=== PATIENT | female | born 1995 | race Caucasian/White ===

== ENCOUNTER 2022-01-04 17:15 | Emergency (ER) | payer MEDICAID, SELFPAY ==
--- NOTE | ~2022-01-04 | XR_ITS ---
EXAMINATION: XR chest 1V portable Exam Date/Time: 01/04/2022 20:04 CDT HISTORY: mid Chest pain x 2-3 days; hx of anxiety Comparison: None available. RESULT: Lines, tubes, and devices: None. Lungs and pleura: Clear. Cardiomediastinal silhouette: Normal. Other: No acute osseous or upper abdominal finding. IMPRESSION: No acute cardiopulmonary process. Reviewed, dictated and finalized at location K.
--- NOTE | 2022-01-04 17:18 | ECG_ITS ---
Measurements Intervals [place] Rate: 92 P: 58 LA: 114 QRS: 45 QRSD: 82 T: 30 QT: 358 QTc: 444 Interpretive Statements SINUS RHYTHM WITH SHORT LA INTERVAL BORDERLINE ECG NO PREVIOUS ECG AVAILABLE FOR COMPARISON Electronically Signed On 01-04-2022 20:11:23 CDT by Ravinder Lewis D.O.
[2022-01-04 17:31] VITALS: BP 138/89; PULSE 76; RESP 17; TEMP 36.8; O2SAT 100
--- NOTE | 2022-01-04 20:14 | ED.GENADULT ---
HPI - General Adult General Chief complaint: Anxiety Stated complaint: CHEST PAIN X 5 DAYS Time Seen by Provider: 01/04/22 19:40 History of Present Illness HPI narrative: this is a 26-year-old female presenting ED with chest pain x5 days. Patient says that it started soon after she wakes up, is described as a pressure or discomfort in her chest that sometimes radiates to her shoulders arms and legs. the pain comes and goes. Patient is has been having this pain intermittently for the last 5 days. Usually resolves with a hot bath but did not today. There are no exacerbating factors. She does associated with palpitations. She has had panic attacks in the past but says this is worse. The episodes are not associated vomiting, diaphoresis, exertional component, fever chills or productive cough. Patient is not having lower extremity edema, she has no risk factors for pulmonary embolism. Course Vital Signs Vital signs: Vital Signs Temperature 98.3 F 01/04/22 17:31 Pulse Rate 76 01/04/22 17:31 Respiratory Rate 17 01/04/22 17:31 Blood Pressure 138/89 01/04/22 17:31 Pulse Oximetry 100 01/04/22 17:31 Oxygen Delivery Room Air 01/04/22 17:31 Temperature 98.3 F 01/04/22 17:31 Pulse Rate 76 01/04/22 17:31 Respiratory Rate 17 01/04/22 17:31 Blood Pressure 138/89 01/04/22 17:31 Pulse Oximetry 100 01/04/22 17:31 Oxygen Delivery Room Air 01/04/22 17:31 Medical Decision Making [facility] Narrative Medical decision making narrative: A 26-year-old female presenting ED with chief complaint of chest pain and anxiety. Patient has been having pain for 5 weeks. He is PERC negative. Basic lab work including troponin and TSH have been ordered. Chest x-ray and EKG been obtained. Patient is not currently having symptoms. EKG interpretation: Rhythm [sinus], Rate 92, [place] -[normal], CT - short, QRS [narrow], QTC [normal], T waves -[negative for concerning inversions], ST Segments - [Negative for concerning elevations] Final interpretations: Normal Sinus Rhythm with shortened CT interval chest x-ray showed no acute cardiopulmonary process. Lab work was within normal limits with a new 1- troponin. Patient has been having symptoms for over 5 days and a delta troponin is not necessary. This time the patient's workup has been negative except for a shortened CT interval on her EKG. She has no other findings of Dlmyp-[id number]-Obnug. She has had unexplained episodes of tachycardia in the past but has not followed with a dieing out machine operator. She has not had any episodes of syncope or there is no sudden cardiac in her family.I believe that she is safe for outpatient follow-up with cardiology. Patient will be discharged. Vital Signs Vital Signs: Vital Signs Temperature 98.3 F 01/04/22 17:31 Pulse Rate 76 01/04/22 17:31 Respiratory Rate 17 01/04/22 17:31 Blood Pressure 138/89 01/04/22 17:31 Pulse Oximetry 100 01/04/22 17:31 Oxygen Delivery Room Air 01/04/22 17:31 Temperature 98.3 F 01/04/22 17:31 Pulse Rate 76 01/04/22 17:31 Respiratory Rate 17 01/04/22 17:31 Blood Pressure 138/89 01/04/22 17:31 Pulse Oximetry 100 01/04/22 17:31 Oxygen Delivery Room Air 01/04/22 17:31 Discharge Plan Discharge Clinical Impression: Acute anxiety, Shortened CT interval Patient Disposition: Home, Self-Care Condition: Stable Instructions: Antibiotic Form, Chest Pain (DC) Additional Instructions: please follow-up with dieing out machine operator for further evaluation of your shortened CT interval on EKG. Please follow-up with your primary care physician for further evaluation of your anxiety. Please return emergency department if you develop worsening chest pain or difficulty breathing or would like re-evaluation. Follow-up/Referrals: Archie Jaimes MD [Physician] - Julee Mckay MD [Physician] - PHYSICIAN,AUTOMOBILE LEASING SUPERVISOR [Primary Care Provider] -
[2022-01-04 20:25] VITALS: PULSE 80
[2022-01-04 20:34] VITALS: PULSE 82; RESP 19
[2022-01-04 20:39] LABS: Basophils Absolute Auto 0.1 K/mm3 (0.0-0.1); Basophils Percent Auto 0.7 % (0.2-1.2); Eosinophils Absolute Auto 0.1 K/mm3 (0-0.3); Eosinophils Percent Auto 1.2 % (0-4.4); Hematocrit 38.8 % (37.0-47.0); Hemoglobin 12.3 g/dL (12.0-15.0); Immature Granulocyte Absolute 0.02 K/mm3 (0.00-0.031); Immature Granulocyte Percent A 0.3 % (0-0.5); Lymphocytes Absolute Auto 2.13 K/mm3 (0.9-3.2); Lymphocytes Percent Auto 29.4 % (18.3-44.2); Mean Corpuscular HGB Conc 31.7 g/dl (32-36); Mean Corpuscular Hemoglobin 28.3 pg (26-34); Mean Corpuscular Volume 89.2 fl (80-100); Mean Platelet Volume 9.5 fl (7.4-10.4); Monocytes Absolute Auto 0.4 K/mm3 (0.1-0.6); Monocytes Percent Auto 6.1 % (2.6-8.5); Neutrophils Absolute Auto 4.5 K/mm3 (1.3-6.7); Neutrophils Percent Auto 62.3 % (45.5-73.1); Platelet Count Result 294 k/mm3 (150-375); Red Blood Count 4.35 M/mm3 (4.2-5.4); Red Cell Distribution Width 13.3 % (11.5-14.5); White Blood Count 7.3 K/mm3 (4.5-10.0)
[2022-01-04 20:45] VITALS: PULSE 74; RESP 16
[2022-01-04 20:48] LABS: Anion Gap 14 mmol/L (8-16); Blood Urea Nitrogen 14 mg/dL (7-17); Calcium 9.2 mg/dL (8.4-10.2); Carbon Dioxide 22 mmol/L (22-30); Chloride 102 mmol/L (98-107); Estimated CRCL calculation 96 ml/min; Estimated Glomerular Filt Rate > 60; Glucose 94 mg/dL (65-110); Potassium 3.8 mmol/L (3.4-5.0); Sodium 138 mmol/L (137-145)
[2022-01-04 21:00] VITALS: PULSE 70; RESP 17
[2022-01-04 21:00] LABS: Troponin I < 0.012 ng/mL (0.000-0.034)
[2022-01-04 21:15] VITALS: PULSE 74; RESP 17
== END 2022-01-04 21:42 | disposition home or self-care (01) ==
PROVIDERS: Emergency Provider Emergency Medicine
DX: F41.9 Anxiety disorder, unspecified (principal); R94.31 Abnormal electrocardiogram [ECG] [EKG]
CPT/HCPCS: 36415; 71045; 80048; 81025; 83735; 84443; 84484; 85025; 93005; 99284

== ENCOUNTER 2023-09-15 23:49 | Emergency (ER) | payer SELFPAY ==
[2023-09-15 23:50] VITALS: BP 129/90; PULSE 82; RESP 14; TEMP 36.6; O2SAT 100
--- NOTE | 2023-09-16 00:02 | ECG_ITS ---
Test Date: 2023-09-16 00:12:35 Measurements Intervals [place] Rate: 75 P: 66 SD: 129 QRS: 32 QRSD: 85 T: 31 QT: 397 QTc: 444 Interpretive Statements SINUS RHYTHM WITH MARKED SINUS ARRHYTHMIA BASELINE ARTIFACT- V2-V3 NORMAL ECG No previous ECG available for comparison Electronically Signed On 09-16-2023 17:34:53 CDT by Ravinder Lewis D.O.
[2023-09-16 00:12] LABS: Basophils Absolute Auto 0.1 K/mm3 (0.0-0.1); Basophils Percent Auto 0.5 % (0.2-1.2); Eosinophils Percent Auto 0.2 % (0-4.4); Hematocrit 43.1 % (37.0-47.0); Hemoglobin 14.3 g/dL (12.0-15.0); Immature Granulocyte Absolute 0.09 K/mm3 (0.00-0.031); Immature Granulocyte Percent A 0.5 % (0-0.5); Lymphocytes Absolute Auto 1.88 K/mm3 (0.9-3.2); Lymphocytes Percent Auto 11.3 % (18.3-44.2); Mean Corpuscular HGB Conc 33.2 g/dl (32-36); Mean Corpuscular Volume 93.3 fl (80-100); Mean Platelet Volume 9.4 fl (7.4-10.4); Monocytes Absolute Auto 0.8 K/mm3 (0.1-0.6); Neutrophils Absolute Auto 13.8 K/mm3 (1.3-6.7); Neutrophils Percent Auto 82.5 % (45.5-73.1); Platelet Count Result 341 k/mm3 (150-375); Red Blood Count 4.62 M/mm3 (4.2-5.4); Red Cell Distribution Width 13.2 % (11.5-14.5); White Blood Count 16.7 K/mm3 (4.5-10.0)
[2023-09-16 00:22] VITALS: RESP 16
[2023-09-16 00:24] VITALS: O2SAT 100
[2023-09-16 00:25] VITALS: BP 118/90; PULSE 95; RESP 14; O2SAT 100
[2023-09-16 00:25] LABS: Acetaminophen < 10 ug/mL (10-30); Ethanol < 10 mg/dL (<10); Salicylate < 1.0 mg/dL (2-20)
--- NOTE | 2023-09-16 00:27 | PC.NURSE ---
Pt stated to pt registration Torsten that blonde hair nurse I'm going to start some shit with her . Pt then proceeded to call this RN radha .
[2023-09-16 00:31] LABS: Alanine Aminotransferase 16 U/L (6-35); Alkaline Phosphatase 54 U/L (38-126); Anion Gap 12 mmol/L (4-12); Aspartate Amino Transferase 25 U/L (14-36); Bilirubin,Total 0.6 mg/dL (0.2-1.3); Blood Urea Nitrogen 11 mg/dL (7-17); Calcium 9.5 mg/dL (8.4-10.2); Carbon Dioxide 26 mmol/L (22-30); Chloride 100 mmol/L (98-107); Estimated CRCL calculation 91 ml/min; Estimated Glomerular Filt Rate > 60; Glucose 115 mg/dL (65-110); Potassium 3.9 mmol/L (3.4-5.0); Sodium 138 mmol/L (137-145)
--- NOTE | 2023-09-16 01:08 | ED.OVERDOSE ---
HPI - Overdose General Chief Complaint: Overdose <Adrienne Benitez PA-C - Last Filed: 09/16/23 03:25> Stated Complaint: overdose <Adrienne Benitez PA-C - Last Filed: 09/16/23 03:25> Time Seen by Provider: 09/15/23 23:57 <DANNY Dominique Last Filed: 09/16/23 03:25> Source: patient and family <DANNY Dominique Last Filed: 09/16/23 03:25> Mode of arrival: EMS <DANNY Dominique Last Filed: 09/16/23 03:25> Limitations: no limitations <Adrienne Benitez PA-C - Last Filed: 09/16/23 03:25> History of Present Illness HPI Narrative: Patient is a 27 y/o female who presents to the ED via EMS with report of overdose. Patient reports she took at least 5 mg of Xanax over the course of a few hours this evening. She then took a 30 mg Percocet pill. Boyfriend at bedside reports patient then became unresponsive and began having gasping breaths. He attempted to wake her up with cold water, but was unable to. He then contacted EMS. Per EMS report, they were reportedly in a parking lot, patient was found to be supine, apneic and appeared cyanotic. EMS administered 2mg IM Narcan and patient quickly awakened and began breathing on her own. Patient reports she is agitated currently, annoyed that she is here. She otherwise denies any acute complaints. She denies specific suicidal ideation, but states she took the pills tonight so that she wouldn't have to be here. she does report intermittent suicidal ideation, documented history of depression. She is not currently on any medications for depression or anxiety. She has been psychiatrically hospitalized in the past. <Adrienne Benitez PA-C - Last Filed: 09/16/23 03:25> Review of Systems Review of Systems: CONSTITUTIONAL: Denies fever, chills, or sweats. CARDIOVASCULAR: Denies chest pain, palpitations, or edema. RESPIRATORY: See HPI GASTROINTESTINAL: Denies abdominal pain, nausea, vomiting, or diarrhea. PSYCHIATRIC: See HPI <Adrienne Benitez PA-C - Last Filed: 09/16/23 03:25> All systems reviewed & are unremarkable except as noted in HPI and below <Adrienne Benitez PA-C - Last Filed: 09/16/23 03:25> PMFSH Social History Social History: Social History (Updated 09/16/23 @ 02:29 by Adrienne Benitez PA-C) Substance use: current Substance use type: sedatives, opiates and prescription drug <Adrienne Benitez PA-C - Last Filed: 09/16/23 03:25> Exam Narrative: GENERAL: Well appearing, well-nourished, non-toxic, in no acute distress. HEAD: Normocephalic, atraumatic. RESPIRATORY: Airway patent, respirations nonlabored. Clear to auscultation bilaterally, no rales, rhonchi, wheezing. CARDIOVASCULAR: Regular rate and rhythm without murmurs, rubs, or gallops. MUSCULOSKELETAL: Moves all extremities. No gross deformities. SKIN: Warm, dry, normal color. NEURO: A&O X3. Speech clear. Cranial nerves II-XII grossly intact. Steady gait. No ataxic movements. PSYCHIATRIC: Mildly agitated, labile mood, intermittently tearful. <Adrienne Benitez PA-C - Last Filed: 09/16/23 03:25> Course Vital Signs Vital signs: Vital Signs Temperature 36.6 C 09/15/23 23:50 Pulse Rate 82 09/15/23 23:50 Respiratory Rate 14 09/15/23 23:50 Blood Pressure 129/90 09/15/23 23:50 Pulse Oximetry 100 09/15/23 23:50 Oxygen Delivery Room Air 09/15/23 23:50 Temperature 36.6 C 09/15/23 23:50 Pulse Rate 78 09/16/23 03:05 Respiratory Rate 15 09/16/23 03:05 Blood Pressure 98/62 L 09/16/23 03:05 Pulse Oximetry 100 09/16/23 03:05 Oxygen Delivery Room Air 09/16/23 00:24 <Adrienne Benitez PA-C - Last Filed: 09/16/23 03:25> Vital Signs Temperature 36.6 C 09/15/23 23:50 Pulse Rate 82 09/15/23 23:50 Respiratory Rate 14 09/15/23 23:50 Blood Pressure 129/90 09/15/23 23:50 Pulse Oximetry 100 09/15/23 23:50 Oxygen Delivery Ro
[2023-09-16] MEDS: NICOTINE (*PBKC) 14 MG PATCH 1 PATCH TRANSDERM (01:13)
[2023-09-16 01:23] LABS: SARS-CoV-2 RNA PCR Negative (Negative)
[2023-09-16] MEDS: NALOXONE HCL INJ 2 MG/2 ML AMP IV PUSH (02:26)
[2023-09-16 03:05] VITALS: BP 98/62; PULSE 78; RESP 15; O2SAT 100
--- NOTE | 2023-09-16 03:09 | PC.NURSE ---
Numerous attempts to get patient to urinate for urinalysis. Patient continues to state that drugs make you so you do not make pee. You should know that . EDP aware.
[2023-09-16 03:50] LABS: Appearance Urine Cloudy (Clear); Bacteria Urine 1+ /hpf; Bilirubin Urine Negative (Negative); Blood Urine Non-Hemolyzed Trace (Negative); Color Urine Yellow (Yellow); Glucose Urine UA Negative (Negative); Ketones Urine 1+ mg/dL (Negative); Leukocyte Esterase Ur 2+ LEU/UL (Negative); Nitrate Urine Negative (Negative); Non Pathogenic Casts 0-2; Protein Urine Negative (Negative); RBC Urine 0-2 /hpf (0-2); Specific Grav Ur 1.015 (1.001-1.035); Squamous Epithelial Cell Urine None Seen /hpf (Few); Urobilinogen Urine 0.2 mg/dL (<2.0); WBC Urine >100 /hpf (0-3); pH Urine 6.5 (5.0-9.0)
[2023-09-16 03:51] LABS: Add Urine Microscopic? YES
[2023-09-16 04:00] LABS: Amphetamine Screen Urine Negative (Negative); Barbiturate Screen Urine Negative (Negative); Benzodiazepines Screen Urine Positive (Negative); Cannabinoid Screen Urine Negative (Negative); Cocaine Screen Urine Negative (Negative); Methadone Screen Urine Negative (Negative); Opiate Screen Urine Negative (Negative); Phencyclidine Screen Urine Negative (Negative)
[2023-09-16 06:41] VITALS: BP 108/66; PULSE 93; RESP 16; O2SAT 100
== END 2023-09-16 06:42 | disposition home or self-care (01) ==
PROVIDERS: Emergency Provider Physician Assistant; PCP Family Medicine
DX: T40.2X2A Poisoning by other opioids, intentional self-harm, initial encounter (principal); F13.10 Sedative, hypnotic or anxiolytic abuse, uncomplicated; R45.851 Suicidal ideations; Z20.822 Contact with and (suspected) exposure to COVID-19
CPT/HCPCS: 36415; 80053; 80307; 81001; 81025; 84443; 85025; 87086; 87635; 93005; 96374; 99284; A9270; J2310

== ENCOUNTER 2023-10-22 22:17 | Emergency (ER) | payer SELFPAY ==
--- NOTE | 2023-10-22 22:25 | ED_ITS ---
HPI - General Adult General Chief complaint: Altered Mental Status Stated complaint: overdose, combative Time Seen by Provider: 10/22/23 22:18 History of Present Illness HPI narrative: Patient 27-year-old female who presents emergency department with chief complaint of intoxication EMS was called for an unresponsive individual that had been drinking the patient denied suicidal or homicidal ideation reports no overdose intentional or accidental patient reports he just wanted to get drunk patient reports he does not want to be seen in the emergency department Review of Systems Review of Systems: A 10 system review of systems was completed on the patient and is negative except for what is stated in the HPI. Nursing and ancillary documentation was reviewed. [facility] Social History Social History Substance use: current Substance use type: sedatives, opiates and prescription drug Exam Narrative: GENERAL: Well-appearing, well-nourished, and in no acute distress. HEAD: Normocephalic, atraumatic. EYES: PERRLA and EOMI. ENT: Nares clear, no rhinorrhea or epistaxis. Mucous membranes moist. NECK: Supple. CHEST: Clear to auscultation. No respiratory distress. HEART: Regular rate and rhythm. No murmur heard. Normal peripheral pulses. ABDOMEN: Soft, nontender, nondistended, normal active bowel sounds. EXTREMITIES: Normal range of motion. No edema. SKIN: Warm, dry, no rash. NEURO: No focal deficits. Alert and oriented x3. Does appear to be intoxicated PSYCH: Anxious mood and affect, denies suicidal or homicidal ideation Medical Decision Making [facility] Narrative Medical decision making narrative: On arrival emergency department the patient was not cooperative patient was alert oriented stated she did not want to be in the emergency department the patient reiterated that she was not suicidal or homicidal there is no report suicidal threat or gesture to EMS the patient reports that she would like to find a sober ride in go home Discharge Plan Discharge Clinical Impression: Alcoholic intoxication Patient Disposition: Left Against Medical Advice Condition: Stable Prescriptions: No Action naloxone 2 mg/2 mL syringe kit 2 mg IM Q2M PRN (Reason: opioid reversal) Qty: 1 0RF Rx Instructions: NTExceed 10 mg total dose/episode Follow-up/Referrals: Charles Nguyen MD [Primary Care Provider] -
--- NOTE | 2023-10-22 22:28 | PC.NURSE ---
pt pulled ems 18g iv with 1 liter of fluids attached to it out of her arm.
--- NOTE | 2023-10-22 22:45 | PC.NURSE ---
Pt arrived to ED a&ox4 refusing all care. EDP Dr. Godinez at bedside throughout triage. Pt yelled multiple times I know my rights I want to leave AMA Pt denied SI, HI and able to appropriately answer questions. Pt explained risks of leaving hospital by this RN and EDP Dr. Godinez. Pt left ED accompanied by significant other. Pt refused to sign AMA form.
== END 2023-10-22 22:45 | disposition left against medical advice (07) ==
PROVIDERS: Emergency Provider Emergency Medicine; PCP Family Medicine
DX: F10.129 Alcohol abuse with intoxication, unspecified (principal); Y90.9 Presence of alcohol in blood, level not specified
CPT/HCPCS: 99281